=== PATIENT | female | born 1995 | race Caucasian/White ===

== ENCOUNTER 2022-03-22 08:46 | Outpatient (CLI) | payer OTHER, SELFPAY ==
[2022-03-22 11:41] LABS: Cholesterol* 235 mg/dL (90-199); HDL Cholesterol* 100 mg/dL (>=50); LDL Cholesterol Calculated 109 mg/dL (<100); Triglycerides* 128 mg/dL (40-149)
== END 2022-03-22 08:47 | disposition home or self-care (01) ==
LOC: NFLDREF 08:46
PROVIDERS: Visit Provider Physician Assistant
DX: Z13.6 Encounter for screening for cardiovascular disorders (principal)
CPT/HCPCS: 80061